=== PATIENT | female | born 1965 | race African-American/Black ===

== ENCOUNTER → 2023-08-08 08:21 | Outpatient (REF) | payer OTHER, SELFPAY | LOC: WDC 08:21 | PROVIDERS: ATTENDING PHYSICIAN Nurse Practitioner Adult Health | DX: Z12.31 Encounter for screening mammogram for malignant neoplasm of breast (principal) | CPT/HCPCS: 77063; 77067 ==

== ENCOUNTER 2024-04-01 06:22 | Day surgery (SDC) | payer OTHER, SELFPAY | END 2024-04-01 08:57 | disposition home or self-care (01) | LOC: GI 06:22 | PROVIDERS: ATTENDING PHYSICIAN Internal Medicine Gastroenterology | DX: Z12.11 Encounter for screening for malignant neoplasm of colon (principal); K57.30 Diverticulosis of large intestine without perforation or abscess without bleeding; K64.8 Other hemorrhoids | CPT/HCPCS: G0105 ==

== ENCOUNTER → 2025-01-17 09:47 | Outpatient (REF) | payer OTHER, SELFPAY | LOC: PET 09:47 | PROVIDERS: ATTENDING PHYSICIAN Internal Medicine Hematology & Oncology | DX: C90.00 Multiple myeloma not having achieved remission (principal) | CPT/HCPCS: 78816; A9552 ==